=== PATIENT | male | born 1975 | race Caucasian/White ===

== ENCOUNTER 2018-09-20 10:45 | Inpatient (IN) | payer OTHER ==
[2018-09-20 13:39] VITALS: BMI 26.1
--- NOTE | 2018-09-20 15:03 | HP ---
Addendum entered and electronically signed by DonnaAleida, RESIDENT 09/20/18 15 :38: +IVDU Original Note: COWS - Scale Resting Pulse: 0= [place] 80 or Below Sweatin= No chills or Flushing Restless Observation: 3= Extraneous Movement Pupil Size: 0= Normal to Room Light Bone or Joint Aches: 2= Severe Diffuse Aches Runny Nose/ Eye Tearin= Nasal Congestion GI Upset > 30mins: 1= Stomach Cramp Tremor Observation: 1= Tremor [place], Not Seen Yawning Observation: 1= 1-2x During Session Anxiety or Irritability: 2=Irritable/Anxious Goose Flesh Skin: 3=Piloerection COWS Score: 14 CIWA Score - Admission Criteria OASAS Guidelines: Admission for Medically Managed Detox: Requires at least one of the followin. CIWA greater than 12 2. Seizures within the past 24 hours 3. Delirium tremens within the past 24 hours 4. Hallucinations within the past 24 hours 5. Acute intervention needed for co occurring medical disorder 6. Acute intervention needed for co occurring psychiatric disorder 7. Severe withdrawal that cannot be handled at a lower level of care (continued vomiting, continued diarrhea, abnormal vital signs) requiring intravenous medication and/or fluids 8. Admission ROS [facility] Chief Complaint: 43 y/o M with PMH anxiety, depression, insomnia, HLD, who presents for detox from heroin and klonopin. Allergies/Adverse Reactions: Allergies Allergy/AdvReac Type Severity Reaction Status Date / Time penicillin G Allergy Mild Rash Verified 09/20/18 13:34 History of Present Illness: 43 y/o M with PMH anxiety, depression, insomnia, HLD who presents for detox from heroin and klonopin. Per pt, he last used heroin yesterday. Used 6 bags via IVDA. Injects into his RUE. Uses daily, 6 bags/day. Longest sobriety was 3 years, after leaving detox at [facility]. Has had recent stressor of losing job 4 months ago, which caused him to relapse. Otherwise states had been doing well. Last used Klonopin yesterday, took 60 pills this week. Usually this amount lasts him a month. He gets his pills from a doc in [facility]. Uses for anxiety. Would like to go back to work after leaving detox. Not interested in rehab. would like outpt setting, NA meetings. Has a home group. Was in detox at [facility] for heroin 01/2017, 09/2016, 2016, etc. PMH: as above PsxH: none meds: klonopin allergies: PCN- hives FH: denies SH: lives at home with family. denies cigarettes, alcohol. Exam Limitations: No Limitations - Ebola screening Have you traveled outside of the country in the last 21 days: No (N) Have you had contact with anyone from an Ebola affected area: No Do you have a fever: No - Review of Systems Constitutional: Chills EENT: reports: No Symptoms Reported Respiratory: reports: No Symptoms reported Cardiac: reports: No Symptoms Reported GI: reports: Nausea, Poor Appetite : reports: No Symptoms Reported Musculoskeletal: reports: Back Pain Integumentary: reports: No Symptoms Reported Neuro: reports: No Symptoms reported Endocrine: reports: No Symptoms Reported Hematology: reports: No Symptoms Reported Psychiatric: reports: No Sypmtoms Reported, Orientated x3 Patient History - Patient Medical History Hx Anemia: No Hx Asthma: No Hx Chronic Obstructive Pulmonary Disease (COPD): No Hx Cancer: No Hx Cardiac Disorders: No Hx Congestive Heart Failure: No Hx Hypertension: No Hx Hypercholesterolemia: Yes (NO MEDS) Hx Pacemaker: No HX Cerebrovascular Accident: No Hx Seizures: No Hx Dementia: No Hx Diabetes: No Hx Gastrointestinal Disorders: No Hx Liver Disease: No Hx Genitourinary Disorders: No Hx Sexually Transmitted Disorders: No Hx Renal Disease (ESRD): No Hx Thyroid Disease: No Hx Human Immunodeficiency Virus (HIV): No (negative) Hx Hepatitis C: No (negative) Hx Depression: Yes Hx Suicide Attempt: No (denies) Hx Bipolar Disorder: No Hx Schizophrenia: No Other Medical History: depression, anxiety, insomnia - Patient Surgical History Past Surgical History: Yes Hx Neurologic Surgery: No Hx Cataract Extraction: No Hx Cardiac Surgery: No Hx Lung Surgery: No Hx Breast Surgery: No Hx Breast Biopsy: No Hx Abdominal Surgery: No Hx Appendectomy: No Hx Cholecystectomy: No Hx Genitourinary Surgery: No Hx Section: No Hx Orthopedic Surgery: Yes (RE-ATTACHMENT OF LT. INDEX) Anesthesia Reaction: No - PPD History Documented Results: Negative w/o proof Date: 01/15/17 Results: 0 mm - Reproductive History Patient is a Female of Child Bearing Age (11 -55 yrs old): No - Smoking Cessation Smoking history: Never smoked Have you smoked in the past 12 months: No Aproximately how many cigarettes per day: 0 Cigars Per Day: 0 Hx Chewing Tobacco Use: No - Substance & Tx. History Hx Alcohol Use: No Substance Use Type: Heroin, Prescribed ( klonopin) Hx Substance Use Treatment: Yes ([facility] 2016, 2016 detox ) - Substances abused Heroin Substance route: Injection Frequency: Daily Amount used: 8-10 bags Age of first use: 34 Date of last use: 09/19/18 Benzodiazepine (Klonopin) Substance route: Oral Frequency: Daily Amount used: 5mg-6mg Age of first use: 33 Date of last use: 09/13/18 Family Disease History - Family Disease History Family Disease History: Other: Father (healthy), Mother (healthy), Brother ( DRUG USE), Sister (ALCOHOLISM) Admission Physical Exam [facility] - Vital Signs Vital Signs: Vital Signs - 24 hr 09/20/18 13:28 Temperature 98.3 F Pulse Rate 78 Respiratory 17 Rate Blood Pressure 131/79 - Physical General Appearance: Yes: Within Normal Limits HEENTM: Yes: Within Normal Limits Respiratory: Yes: Lungs Clear Neck: Yes: Supple Breast: Yes: Breast Exam Deferred Cardiology: Yes: Regular Rhythm, Regular Rate, S1, S2 Abdominal: Yes: Flat Genitourinary: Yes: Within Normal Limits Back: Yes: Within Normal Limits, Normal Inspection Musculoskeletal: Yes: Within Normal Limits Extremities: Yes: Other (+track ortiz LUE) 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: Yes: 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 Integumentary: Yes: Dry, Warm Lymphatic: Yes: Within Normal Limits - Diagnostic (1) Hyperlipidemia Current Visit: Yes Status: Chronic (2) Anxiety Current Visit: Yes Status: Chronic (3) Depression Current Visit: Yes Status: Chronic (4) Benzodiazepine abuse Current Visit: Yes Status: Acute (5) Opioid dependence with withdrawal Current Visit: No Status: Acute Cleared for Admission [facility] - Detox or Rehab [facility] Level of Care: Medically Supervised Detox Regimen/Protocol: Methadone/Valium Inpatient Rehab Admission - Rehab Decision to Admit Inpatient rehab admission?: No
[2018-09-20] MEDS ORDERED: ACETAMINOPHEN 325 MG TABLET (FP) PO PRN ×2 (15:11)
[2018-09-20] MEDS ORDERED: hydrOXYzine HCL 25 MG TABLET (FP) PO PRN (15:11)
[2018-09-20] MEDS ORDERED: MENTHOL/PHENOL 1 EACH UD MM PRN (15:11)
[2018-09-20] MEDS ORDERED: BISMUTH SUBSALICYLATE 524 MG/30 ML UD PO PRN (15:11)
[2018-09-20] MEDS ORDERED: MAG HYDROX/AL HYDROX/SIMETH 30 ML UNIT-DOSE CUP PO PRN (15:11)
[2018-09-20] MEDS ORDERED: IBUPROFEN 400 MG TABLET (FP) PO PRN (15:11)
[2018-09-20] MEDS ORDERED: MAGNESIUM HYDROX 2400MG/30ML ORAL SUSPENSION 30 ML CUP PO PRN (15:11)
[2018-09-20] MEDS ORDERED: cloNIDine HCL 0.1 MG TABLET PO PRN (15:30)
--- NOTE | 2018-09-20 15:49 | PN ---
YUSRA Progress Note Note: this 43 years old male with heroin dependence and benzo abused,seeking detox, withdrawal symptom. i present,personally review the history and physical examination by Dr.Abbi Shin, discussed medical decision and plan of management,I agreed and concurred that this patient need in patient detox,medical management,methadone regimen
[2018-09-20] MEDS ORDERED: METHADONE HCL 10 MG TABLET (FOR DETOX USE ONLY) PO ONE (16:30)
[2018-09-20] MEDS: diazePAM 5 MG TABLET PO PRN ×2 (16:56→22:30)
[2018-09-20 17:25] LABS: HEMATOCRIT 40.5 % (35.4-49); HEMOGLOBIN 13.8 GM/dL (11.7-16.9); MCH 28.4 pg (25.7-33.7); MCHC 34.1 g/dl (32.0-35.9); MEAN CELL VOLUME 83.1 fl (80-96); MEAN PLT VOLUME 8.3 fl (7.5-11.1); PLATELET COUNT 231 K/MM3 (134-434); RBC 4.88 M/mm3 (4.00-5.60); RDW 14.9 % (11.9-15.9); WHITE BLOOD COUNT 6.4 K/mm3 (4.0-10.0)
[2018-09-20 17:36] LABS: BILIRUBIN,TOTAL 0.3 mg/dL (0.2-1); BLOOD UREA NITROGEN 10.4 mg/dL (7-18); CALCIUM 9.3 mg/dL (8.5-10.1); CREATININE 0.8 mg/dL (0.55-1.3); POTASSIUM 4.4 mmol/L (3.5-5.1); TOT PROT 7.6 g/dl (6.4-8.2)
[2018-09-20] MEDS: MELATONIN 5 MG TABLETS PO PRN (22:30)
[2018-09-20] MEDS: THIAMINE HCL 100 MG TABLET (FP) PO SCH (22:30)
[2018-09-21] MEDS: diazePAM 5 MG TABLET PO PRN ×5 (02:41→22:09)
[2018-09-21] MEDS ORDERED: METHADONE HCL 5 MG TABLET (FOR DETOX USE ONLY) ONE (08:48)
[2018-09-21] MEDS ORDERED: METHADONE HCL 10 MG TABLET (FOR DETOX USE ONLY) ONE (08:48)
[2018-09-21] MEDS: PRENATAL VITAMINS W/ FOLIC ACID TABLET (FP) PO SCH (09:11)
--- NOTE | 2018-09-21 09:20 | CONSULT ---
[facility] Psychiatric Consult - Data Date of interview: 09/21/18 Admission source: [facility] Identifying data: Patient is a 43 year old engaged male, without children, unemployed, domiciled, and is supported by financial savings. This is one of multiple admissios for patient. Patient admitted to for opiate dependence. Substance Abuse History: Smoking Cessation. Smoking history: Never smoked. Have you smoked in the past 12 months: No. Aproximately how many cigarettes per day: 0. Cigars Per Day: 0. Hx Chewing Tobacco Use: No. - Substance & Tx. History. Hx Alcohol Use: No. Substance Use Type: Heroin, Prescribed ( klonopin ). Hx Substance Use Treatment: Yes ([facility] 2016, 2016 detox ). - Substances abused. Heroin. Substance route: Injection. Frequency: Daily. Amount used : 8-10 bags. Age of first use: 34. Date of last use: 09/19/18. Benzodiazepine (Klonopin). Substance route: Oral. Frequency: Daily. Amount used: 5mg-6mg. Age of first use: 33. Date of last use: 09/13/18 Medical History: hypercholesterolemia Psychiatric History: Patient denies h/o psychiatric hospitalization and suicide attempts. Reports only seeing a psychiatrist when admitted to detox/rehab settings. States his primary care physician currently prescribes seroquel 200mg. Reports accepting trazodone in the past but medication was discontinued after he caused him stomach pain. At present, patient reports stable mood but is experiencing difficulty sleeping. Physical/Sexual Abuse/Trauma History: denies. Mental Status Exam - Mental Status Exam Alert and Oriented to: Time, Place, Person Cognitive Function: Good Patient Appearance: Well Groomed Mood: Euthymic Affect: Mood Congruent Patient Behavior: Appropriate, Cooperative Speech Pattern: Appropriate Voice Loudness: Normal Thought Process: Intact, Goal Oriented Thought Disorder: Not Present Hallucinations: Denies Suicidal Ideation: Denies Homicidal Ideation: Denies Insight/Judgement: Poor Sleep: Poorly Appetite: Fair Muscle strength/Tone: Normal Gait/Station: Normal Psychiatric Findings - Problem List ([place] 1, 2,3) (1) Substance-induced sleep disorder Current Visit: Yes Status: Acute (2) Benzodiazepine abuse Current Visit: Yes Status: Acute (3) Opioid dependence with withdrawal Current Visit: Yes Status: Acute - Initial Treatment Plan Initial Treatment Plan: Psychoeducation provided. Detoxification in progress. Will order Seroquel 100mg HS. Benefits and side effects discussed. Verbal consent given.
[2018-09-21] MEDS ORDERED: METHADONE (DETOX) 20 MG, METHADONE (DETOX) 5 MG PO ONE (10:00)
--- NOTE | 2018-09-21 10:13 | PN ---
BHS COWS - Scale Resting Pulse: 1= [place] 81-100 Sweatin= No chills or Flushing Restless Observation: 0= Sits Still Pupil Size: 1= Pupils >than Normal Bone or Joint Aches: 1= Mild Discomfort Runny Nose/ Eye Tearin= Nasal Congestion GI Upset > 30mins: 1= Stomach Cramp Tremor Observation of Outstretched Hands: 2= Slight Tremor Visible Yawning Observation: 0= None Anxiety or Irritability: 2=Irritable/Anxious Goose Flesh Skin: 3=Piloerection COWS Score: 12 BHS Progress Note (SOAP) Subjective: 43 years old male admitted on for opiate withdrawal sx history of hypercholesterolemia treated with dietary control patient is taking vivitrol 380 mg IM monthly last dose 08/2018 klonopin 1 mg po hs daily prescribed monthly by his provider patient feels sad about losing his job discuss relapse prevention Objective: 09/21/18 10:18 Vital Signs Temperature 97.7 F 09/21/18 09:57 Pulse Rate 83 09/21/18 09:57 Respiratory Rate 18 09/21/18 09:57 Blood Pressure 111/78 09/21/18 09:57 O2 Sat by Pulse Oximetry (%) Laboratory Last Values WBC 6.4 K/mm3 (4.0-10.0) 09/20/18 15:40 RBC 4.88 M/mm3 (4.00-5.60) 09/20/18 15:40 Hgb 13.8 GM/dL (11.7-16.9) 09/20/18 15:40 Hct 40.5 % (35.4-49) 09/20/18 15:40 MCV 83.1 fl (80-96) 09/20/18 15:40 MCH 28.4 pg (25.7-33.7) 09/20/18 15:40 MCHC 34.1 g/dl (32.0-35.9) 09/20/18 15:40 RDW 14.9 % (11.9-15.9) 09/20/18 15:40 Plt Count 231 K/MM3 (134-434) 09/20/18 15:40 MPV 8.3 fl (7.5-11.1) 09/20/18 15:40 Sodium 137 mmol/L (136-145) 09/20/18 15:40 Potassium 4.4 mmol/L (3.5-5.1) 09/20/18 15:40 Chloride 106 mmol/L (98-107) 09/20/18 15:40 Carbon Dioxide 25 mmol/L (21-32) 09/20/18 15:40 Anion Gap 7 MMOL/L (8-16) L 09/20/18 15:40 BUN 10.4 mg/dL (7-18) 09/20/18 15:40 Creatinine 0.8 mg/dL (0.55-1.3) 09/20/18 15:40 Est GFR (CKD-EPI)AfAm 128.60 09/20/18 15:40 Est GFR (CKD-EPI)NonAf 110.96 09/20/18 15:40 Random Glucose 95 mg/dL (74-106) 09/20/18 15:40 Calcium 9.3 mg/dL (8.5-10.1) 09/20/18 15:40 Total Bilirubin 0.3 mg/dL (0.2-1) 09/20/18 15:40 AST 28 U/L (15-37) 09/20/18 15:40 ALT 31 U/L (13-61) 09/20/18 15:40 Alkaline Phosphatase 80 U/L (45-117) 09/20/18 15:40 Total Protein 7.6 g/dl (6.4-8.2) 09/20/18 15:40 Albumin 4.0 g/dl (3.4-5.0) 09/20/18 15:40 Triglycerides 214 mg/dL (0-150) H 09/20/18 15:40 Cholesterol 271 mg/dL (50-200) H 09/20/18 15:40 Total LDL Cholesterol 179 mg/dL (5-100) H 09/20/18 15:40 HDL Cholesterol 61 mg/dL (40-60) H 09/20/18 15:40 lab noted hyperlipidemia Assessment: 09/21/18 10:19 opiate withdrawal sx Plan: continue opiate detox
[2018-09-21] MEDS: THIAMINE HCL 100 MG TABLET (FP) PO SCH (22:09)
[2018-09-21] MEDS: QUEtiapine FUMARATE 100 MG TABLET (FP) PO SCH (22:10)
[2018-09-21] MEDS: MELATONIN 5 MG TABLETS PO PRN (22:10)
[2018-09-22] MEDS: diazePAM 5 MG TABLET PO PRN ×5 (05:42→22:23)
[2018-09-22] MEDS ORDERED: METHADONE HCL 10 MG TABLET (FOR DETOX USE ONLY) PO ONE (10:00)
[2018-09-22] MEDS: PRENATAL VITAMINS W/ FOLIC ACID TABLET (FP) PO SCH (10:12)
--- NOTE | 2018-09-22 15:16 | PN ---
BHS COWS - Scale Resting Pulse: 0= [place] 80 or Below Sweatin= Chills/Flushing Restless Observation: 1= Difficult to Sit Still Pupil Size: 0= Normal to Room Light Bone or Joint Aches: 1= Mild Discomfort Runny Nose/ Eye Tearin= None GI Upset > 30mins: 0= None Tremor Observation of Outstretched Hands: 0= None Yawning Observation: 1= 1-2x During Session Anxiety or Irritability: 2=Irritable/Anxious Goose Flesh Skin: 3=Piloerection COWS Score: 9 BHS Progress Note (SOAP) Subjective: Sweating, Fatigue, Anxious. Patient Reports That Current Withdrawal symptoms Are Gradually Subsiding In Degree. Objective: PATIENT A & O X 3, OBSERVED AMBULATING ON UNIT UNASSISTED. IN NO ACUTE DISTRESS. 09/22/18 15:14 Vital Signs Temperature 96.7 F L 09/22/18 13:06 Pulse Rate 53 L 09/22/18 13:06 Respiratory Rate 18 09/22/18 13:06 Blood Pressure 103/65 09/22/18 13:06 O2 Sat by Pulse Oximetry (%) Laboratory Tests 09/20/18 09/20/18 09/20/18 15:40 15:40 15:40 WBC 6.4 RBC 4.88 Hgb 13.8 Hct 40.5 MCV 83.1 MCH 28.4 MCHC 34.1 RDW 14.9 Plt Count 231 MPV 8.3 Sodium 137 Potassium 4.4 Chloride 106 Carbon Dioxide 25 Anion Gap 7 L BUN 10.4 Creatinine 0.8 Est GFR (CKD-EPI)AfAm 128.60 Est GFR (CKD-EPI)NonAf 110.96 Random Glucose 95 Calcium 9.3 Total Bilirubin 0.3 AST 28 ALT 31 Alkaline Phosphatase 80 Total Protein 7.6 Albumin 4.0 Triglycerides 214 H Cholesterol 271 H Total LDL Cholesterol 179 H HDL Cholesterol 61 H RPR Titer TB (QFT) Incubation TB Test (QFT) Nil 0.03 TB Test (QFT) Mitogen >10.00 TB Test (QFT) Antigen 0.03 TB Test (QFT) Negative TB Positive Criteria 09/20/18 15:40 WBC RBC Hgb Hct MCV MCH MCHC RDW Plt Count MPV Sodium Potassium Chloride Carbon Dioxide Anion Gap BUN Creatinine Est GFR (CKD-EPI)AfAm Est GFR (CKD-EPI)NonAf Random Glucose Calcium Total Bilirubin AST ALT Alkaline Phosphatase Total Protein Albumin Triglycerides Cholesterol Total LDL Cholesterol HDL Cholesterol RPR Titer Nonreactive TB (QFT) Incubation TB Test (QFT) Nil TB Test (QFT) Mitogen TB Test (QFT) Antigen TB Test (QFT) TB Positive Criteria LABS NOTED. Assessment: 09/22/18 15:15 WITHDRAWAL SYMPTOMS. Plan: CONTINUE DETOX.
[2018-09-22] MEDS: QUEtiapine FUMARATE 100 MG TABLET (FP) PO SCH (22:23)
[2018-09-22] MEDS: MELATONIN 5 MG TABLETS PO PRN (22:24)
[2018-09-22] MEDS: THIAMINE HCL 100 MG TABLET (FP) PO SCH (22:24)
[2018-09-23] MEDS: diazePAM 5 MG TABLET PO PRN ×3 (03:52→13:58)
[2018-09-23] MEDS ORDERED: METHADONE HCL 10 MG TABLET (FOR DETOX USE ONLY) ONE (09:13)
[2018-09-23] MEDS ORDERED: METHADONE HCL 5 MG TABLET (FOR DETOX USE ONLY) ONE (09:13)
[2018-09-23] MEDS ORDERED: METHADONE (DETOX) 10 MG, METHADONE (DETOX) 5 MG PO ONE (10:00)
[2018-09-23] MEDS: PRENATAL VITAMINS W/ FOLIC ACID TABLET (FP) PO SCH (10:08)
--- NOTE | 2018-09-23 15:31 | PN ---
BHS COWS - Scale Resting Pulse: 1= [place] 81-100 Sweatin= No chills or Flushing Restless Observation: 0= Sits Still Pupil Size: 0= Normal to Room Light Bone or Joint Aches: 0= None Runny Nose/ Eye Tearin= None GI Upset > 30mins: 0= None Tremor Observation of Outstretched Hands: 0= None Yawning Observation: 1= 1-2x During Session Anxiety or Irritability: 0= None Goose Flesh Skin: 0=Smooth Skin COWS Score: 2 BHS Progress Note (SOAP) Subjective: Patient denies current Withdrawal / Detox symptoms and reports that he feels well overall at this time. Objective: PATIENT A & O X 3, OBSERVED AMBULATING ON UNIT UNASSISTED. IN NO ACUTE DISTRESS. 09/23/18 15:29 Vital Signs Temperature 97 F L 09/23/18 14:33 Pulse Rate 95 H 09/23/18 14:33 Respiratory Rate 18 09/23/18 14:33 Blood Pressure 123/86 09/23/18 14:33 O2 Sat by Pulse Oximetry (%) Laboratory Tests 09/20/18 09/20/18 09/20/18 15:40 15:40 15:40 WBC 6.4 RBC 4.88 Hgb 13.8 Hct 40.5 MCV 83.1 MCH 28.4 MCHC 34.1 RDW 14.9 Plt Count 231 MPV 8.3 Sodium 137 Potassium 4.4 Chloride 106 Carbon Dioxide 25 Anion Gap 7 L BUN 10.4 Creatinine 0.8 Est GFR (CKD-EPI)AfAm 128.60 Est GFR (CKD-EPI)NonAf 110.96 Random Glucose 95 Calcium 9.3 Total Bilirubin 0.3 AST 28 ALT 31 Alkaline Phosphatase 80 Total Protein 7.6 Albumin 4.0 Triglycerides 214 H Cholesterol 271 H Total LDL Cholesterol 179 H HDL Cholesterol 61 H RPR Titer TB (QFT) Incubation TB Test (QFT) Nil 0.03 TB Test (QFT) Mitogen >10.00 TB Test (QFT) Antigen 0.03 TB Test (QFT) Negative TB Positive Criteria 09/20/18 15:40 WBC RBC Hgb Hct MCV MCH MCHC RDW Plt Count MPV Sodium Potassium Chloride Carbon Dioxide Anion Gap BUN Creatinine Est GFR (CKD-EPI)AfAm Est GFR (CKD-EPI)NonAf Random Glucose Calcium Total Bilirubin AST ALT Alkaline Phosphatase Total Protein Albumin Triglycerides Cholesterol Total LDL Cholesterol HDL Cholesterol RPR Titer Nonreactive TB (QFT) Incubation TB Test (QFT) Nil TB Test (QFT) Mitogen TB Test (QFT) Antigen TB Test (QFT) TB Positive Criteria LABS NOTED. Assessment: 09/23/18 15:29 WITHDRAWAL SYMPTOMS. Plan: CONTINUE DETOX. SINCE PATIENT REPORTS THAT CURRENT WITHDRAWAL / DETOX ARE MINIMAL AT THIS TIME, AT PATIENT'S REQUEST, CURRENT DETOX MEDICATION REGIMEN (METHADONE) MODIFIED SO THAT PATIENT MAY BE DISCHARGED TOMORROW, 09/24/2018. PATIENT REQUESTS TO BE DISCHARGED FROM DETOX UNIT AT [facility]. 12 NOON TO FACILITATE TRANSPORTATION TO HIS HOME.
[2018-09-23] MEDS: MELATONIN 5 MG TABLETS PO PRN (22:19)
[2018-09-23] MEDS: THIAMINE HCL 100 MG TABLET (FP) PO SCH (22:19)
[2018-09-23] MEDS: QUEtiapine FUMARATE 100 MG TABLET (FP) PO SCH (22:19)
[2018-09-24] MEDS ORDERED: METHADONE HCL 5 MG TABLET (FOR DETOX USE ONLY) PO ONE (06:00)
[2018-09-24 09:27] VITALS: BP 127/91; PULSE 92; TEMP 96.7
[2018-09-24] MEDS ORDERED: METHADONE HCL 10 MG TABLET (FOR DETOX USE ONLY) PO ONE (10:00)
[2018-09-24] MEDS: PRENATAL VITAMINS W/ FOLIC ACID TABLET (FP) PO SCH (10:44)
--- NOTE | 2018-09-24 15:23 | DS ---
[facility] Detox Discharge Summary Admission Date: 09/20/18 Discharge Date: 09/24/18 - History Present History: Opioid Dependence Additional Comments: 43 years old male admitted on 09/20/18 for opiate withdrawal sx medical history of hyperlipidemia patient prefers return to vivital IM monthly and klonopin 1 mg po daily feeling better today prefers return home today and begin recovery with community health services of vivitrol and klonopin provider Pertinent Past History: encourage to bring in medication list and lab report to aftercare facility - Physical Exam Results Vital Signs: Vital Signs Temperature 96.7 F L 09/24/18 09:27 Pulse Rate 92 H 09/24/18 09:27 Respiratory Rate 20 09/24/18 09:27 Blood Pressure 127/91 09/24/18 09:27 O2 Sat by Pulse Oximetry (%) Pertinent Admission Physical Exam Findings: opiate withdrawal sx Laboratory Last Values WBC 6.4 K/mm3 (4.0-10.0) 09/20/18 15:40 RBC 4.88 M/mm3 (4.00-5.60) 09/20/18 15:40 Hgb 13.8 GM/dL (11.7-16.9) 09/20/18 15:40 Hct 40.5 % (35.4-49) 09/20/18 15:40 MCV 83.1 fl (80-96) 09/20/18 15:40 MCH 28.4 pg (25.7-33.7) 09/20/18 15:40 MCHC 34.1 g/dl (32.0-35.9) 09/20/18 15:40 RDW 14.9 % (11.9-15.9) 09/20/18 15:40 Plt Count 231 K/MM3 (134-434) 09/20/18 15:40 MPV 8.3 fl (7.5-11.1) 09/20/18 15:40 Sodium 137 mmol/L (136-145) 09/20/18 15:40 Potassium 4.4 mmol/L (3.5-5.1) 09/20/18 15:40 Chloride 106 mmol/L (98-107) 09/20/18 15:40 Carbon Dioxide 25 mmol/L (21-32) 09/20/18 15:40 Anion Gap 7 MMOL/L (8-16) L 09/20/18 15:40 BUN 10.4 mg/dL (7-18) 09/20/18 15:40 Creatinine 0.8 mg/dL (0.55-1.3) 09/20/18 15:40 Est GFR (CKD-EPI)AfAm 128.60 09/20/18 15:40 Est GFR (CKD-EPI)NonAf 110.96 09/20/18 15:40 Random Glucose 95 mg/dL (74-106) 09/20/18 15:40 Calcium 9.3 mg/dL (8.5-10.1) 09/20/18 15:40 Total Bilirubin 0.3 mg/dL (0.2-1) 09/20/18 15:40 AST 28 U/L (15-37) 09/20/18 15:40 ALT 31 U/L (13-61) 09/20/18 15:40 Alkaline Phosphatase 80 U/L (45-117) 09/20/18 15:40 Total Protein 7.6 g/dl (6.4-8.2) 09/20/18 15:40 Albumin 4.0 g/dl (3.4-5.0) 09/20/18 15:40 Triglycerides 214 mg/dL (0-150) H 09/20/18 15:40 Cholesterol 271 mg/dL (50-200) H 09/20/18 15:40 Total LDL Cholesterol 179 mg/dL (5-100) H 09/20/18 15:40 HDL Cholesterol 61 mg/dL (40-60) H 09/20/18 15:40 RPR Titer Nonreactive (NONREACTIVE) 09/20/18 15:40 TB (QFT) Incubation (.) 09/20/18 15:40 TB Test (QFT) Nil 0.03 IU/mL (.) 09/20/18 15:40 TB Test (QFT) Mitogen >10.00 IU/mL (.) 09/20/18 15:40 TB Test (QFT) Antigen 0.03 IU/mL (.) 09/20/18 15:40 TB Test (QFT) Negative (Negative) 09/20/18 15:40 TB Positive Criteria (.) 09/20/18 15:40 lab noted begin low cholesterol diet x 3-6 months repeat lipid if continue elevation seeks community health service for possible antilipid agent - Treatment Hospital Course: Detox Protocol Followed, Detoxed Safely, Responded well, Discharged Condition Good, Rehab Referral Accepted Patient has Accepted a Rehab Referral to: continue vivitrol and klonopine - Medication Discharge Medications: Ambulatory Orders Quetiapine Fumarate [Seroquel] 200 mg PO HS PRN 09/20/18 - Diagnosis (1) Opioid dependence with withdrawal Status: Acute (2) Hyperlipidemia Status: Chronic Qualifiers: Hyperlipidemia type: unspecified Qualified Code(s): E78.5 - Hyperlipidemia , unspecified (3) Drug-induced mood disorder Status: Suspected - AMA Did Patient Leave Against Medical Advice: No
[2018-09-25] MEDS ORDERED: METHADONE HCL 5 MG TABLET (FOR DETOX USE ONLY) PO ONE (06:00)
== END 2018-09-24 12:43 | disposition home or self-care (01) | DRG 773 ==
LOC: YASAS 10:45 → Y3N 15:46
PROVIDERS: ADMIT Surgery; ATTEND Surgery
PROC: HZ2ZZZZ Detoxification Services for Substance Abuse Treatment (ICD-10-PCS; principal; 2018-09-20)
DX: F11.23 Opioid dependence with withdrawal (principal); F13.10 Sedative, hypnotic or anxiolytic abuse, uncomplicated; F19.24 Other psychoactive substance dependence with psychoactive substance-induced mood disorder; F19.282 Other psychoactive substance dependence with psychoactive substance-induced sleep disorder; F41.9 Anxiety disorder, unspecified; F32.9 Major depressive disorder, single episode, unspecified; E78.5 Hyperlipidemia, unspecified; Z88.0 Allergy status to penicillin
CPT/HCPCS: 36415; 80053; 80061; 83721; 85027; 86480; 86593